=== PATIENT | female | born 1995 | race Caucasian/White ===

== ENCOUNTER 2017-01-30 15:55 | Emergency (ER) | payer OTHER ==
[2017-01-30 16:46] LABS: Comments Flag Yes; Hematocrit 35 % (35-47); Hemoglobin 11.2 g/dl (12.0-16.0); Mean Corpuscular HGB Conc 32 g/dl (31-36); Mean Corpuscular Hemoglobin 21 pg (27-31); Mean Corpuscular Volume 65 fL (80-97); Mean Platelet Volume 8 um3 (7.4-10.4); Red Blood Count 5.39 10^6/ul (4.0-5.4); Red Cell Distribution Width 17 % (10.5-15)
[2017-01-30 16:47] LABS: Add Diff/Slide Review? Slide Review Added
[2017-01-30 17:02] LABS: ALT 15 U/L (7-52); AST 19 U/L (13-39); Albumin 4.3 g/dL (3.2-5.2); Alkaline Phosphatase 38 U/L (34-104); Anion Gap 6 mmol/L (2-11); BUN/Creatinine Ratio 10.8 (8-20); Blood Urea Nitrogen 7 mg/dL (6-24); CO2 Carbon Dioxide 26 mmol/L (22-32); Calcium 9.5 mg/dL (8.6-10.3); Chloride 104 mmol/L (101-111); Creatine Kinase 50 U/L (10-223); EGFR Non-African American 115.1 (>60); Globulin 2.9 g/dL (2-4); Glucose 89 mg/dL (70-100); Magnesium 1.9 mg/dL (1.9-2.7); Potassium 3.4 mmol/L (3.5-5.0); Sodium 136 mmol/L (133-145); Total Protein 7.2 g/dL (6.4-8.9)
[2017-01-30 17:11] LABS: Add Path Review? YES; Microcytosis 2+
[2017-01-30] MEDS ORDERED: Potassium Chlor TAB* 20 MEQ TAB.ER PO ONE (17:42)
[2017-01-30 17:45] LABS: Urine Bacteria Absent (Absent); Urine Bilirubin Negative (Negative); Urine Glucose Negative (Negative); Urine Nitrite Negative (Negative)
--- NOTE | 2017-01-30 18:00 | RAD ---
INDICATION: Midsternal chest pain COMPARISON: Chest x-ray dated August 30, 2015 TECHNIQUE: PA and lateral views of the chest were obtained. FINDINGS: The heart and mediastinum are normal in size and contour. The lungs are grossly clear. There is no evidence of large pleural effusion. Visualized bones are normal for the patient's age. There is no radiographic evidence of free air beneath the diaphragm IMPRESSION: No radiographic evidence of acute cardiopulmonary disease.
[2017-01-30 18:04] LABS: TSH (Thyroid Stimulating Horm) 0.41 mcIU/mL (0.34-5.60)
--- NOTE | 2017-01-30 18:22 | ED ---
Marisabel Lomeli Abhishek, scribed for Vini Knight MD on 01/30/17 at 1633 . Abdominal Pain/Female - HPI Summary HPI Summary: This patient is a 21 year old F presenting to [facility] with a chief complaint of abd pain since 2 weeks ago. Patient states that pain radiated to the left side of chest and pain is worse since last night. The patient rates the pain 7/10 in severity. Symptoms alleviated by nothing. Patient reports gradual weight loss since a few months ago as well as memory loss, no sleep for a few weeks, decreased appetite since a few days ago, nausea and vomiting aggravated by eating food, fatigue, and GA. Patient denies vaginal discharge and bleeding. Pt does not drink any form of power drinks such as coffee Pt also states last menstrual period last week. - History of Current Complaint Chief Complaint: EDChestPainROMI Stated Complaint: CHEST PAIN Hx Obtained From: Patient Hx Last Menstrual Period: Last week Onset/Duration: Gradual Onset, Lasting Weeks - a few weeks ago, Still Present Timing: Constant Severity Initially: Moderate Severity Currently: Moderate Pain Intensity: 7 Pain Scale Used: 0-10 Numeric Radiates: Yes Radiates to: Chest - Left Aggravating Factor(s): Food Alleviating Factor(s): Nothing Associated Signs and Symptoms: Positive: Chest Pain, Decreased Appetite, Nausea - aggravated by food, Vomiting - aggravated by food, Other: - Headache. Negative: Vaginal Bleeding, Vaginal Discharge Allergies/Adverse Reactions: Allergies Allergy/AdvReac Type Severity Reaction Status Date / Time No Known Allergies Allergy Verified 01/30/17 16:02 PMH/Surg Hx/FS Hx/Imm Hx Endocrine/Hematology History: Denies: Hx Diabetes, Hx Thyroid Disease Cardiovascular History: Reports: Other Cardiovascular Problems/Disorders - HEART MURMUR Denies: Hx Hypertension, Hx Pacemaker/ICD Respiratory History: Denies: Hx Asthma, Hx Chronic Obstructive Pulmonary Disease (COPD) GI History: Denies: Hx Ulcer Sensory History: Denies: Hx Hearing Aid Psychiatric History: Denies: Hx Panic Disorder - Surgical History Surgery Procedure, Year, and Place: CYST REMOVED FROM [facility] Infectious Disease History: No Infectious Disease History: Denies: Hx Hepatitis, Hx Human Immunodeficiency Virus (HIV), History Other Infectious Disease, Traveled Outside the [place] in Last 30 Days - Family History Known Family History: Positive: None Family History: NON CONTRIBUTORY - Social History Alcohol Use: None Substance Use Type: Reports: None Smoking Status (MU): Never Smoked Tobacco Type: Cigarettes Review of Systems Positive: Fatigue Eyes: Negative ENT: Negative Positive: Chest Pain - Left Respiratory: Negative Positive: Abdominal Pain - upper and side regions, Vomiting - aggravated by food , Nausea - aggravated by food, Other - decreased appetite Positive: other - Negative vaginal bleeding. Negative: discharge Musculoskeletal: Negative Neurological: Other - memory loss Positive: Headache Psychological: Normal All Other Systems Reviewed And Are Negative: Yes Physical Exam - Summary Physical Exam Summary: VITAL SIGNS: Reviewed. GENERAL: Patient is a well-developed and nourished female who is lying comfortable in the stretcher. ~Patient is not in any acute respiratory distress. HEAD AND FACE: Normocephalic and atraumatic. EYES: PERRLA, EOMI x 2, No injected conjunctiva. EARS: Hearing grossly intact. Ear canals and tympanic membranes are WNL. MOUTH: Oropharynx within normal limits. NECK: Supple, trachea is midline, no adenopathy, no JVD. CHEST: Symmetric, no tenderness at palpation LUNGS: Clear to auscultation bilaterally. No wheezing or crackles. CVS: RRR, S1 and S2 present, no murmurs or gallops appreciated. ABDOMEN: Left lower quadrant tenderness EXTREMITIES: FROM in all major joints, no edema, no cyanosis or clubbing. NEURO: Alert and oriented x 3. No acute neurological deficits. Speech is normal. SKIN: Dry and warm Triage Information Reviewed: Yes Vital Signs On Initial Exam: Initial Vitals Temp Pulse Resp BP Pulse Ox 98.2 F 62 14 130/70 100 01/30/17 15:57 01/30/17 15:57 01/30/17 15:57 01/30/17 15:57 01/30/17 15:57 Vital Signs Reviewed: Yes Diagnostics - Vital Signs Vital Signs Temp Pulse Resp BP Pulse Ox 01/30/17 15:57 98.2 F 62 14 130/70 100 - Laboratory Lab Results: Lab Results 01/30/17 01/30/17 01/30/17 Range/Units 16:40 16:40 17:29 WBC 7.0 (3.5-10.8) 10^3/ul RBC 5.39 (4.0-5.4) 10^6/ul Hgb 11.2 L (12.0-16.0) g/dl Hct 35 (35-47) % MCV 65 L (80-97) fL MCH 21 L (27-31) pg MCHC 32 (31-36) g/dl RDW 17 H (10.5-15) % Plt Count 279 (150-450) 10^3/ul MPV 8 (7.4-10.4) um3 Neut % (Auto) 72.7 (38-83) % Lymph % (Auto) 19.7 L (25-47) % Mckean % (Auto) 5.3 (1-9) % Eos % (Auto) 1.3 (0-6) % Baso % (Auto) 1.0 (0-2) % Absolute Neuts (auto) 5.1 (1.5-7.7) 10^3/ul Absolute Lymphs (auto) 1.4 (1.0-4.8) 10^3/ul Absolute Monos (auto) 0.4 (0-0.8) 10^3/ul Absolute Eos (auto) 0.1 (0-0.6) 10^3/ul Absolute Basos (auto) 0.1 (0-0.2) 10^3/ul Absolute Nucleated RBC 0 10^3/ul Nucleated RBC % 0 Normal RBC Morphology Not Reportable Microcytosis 2+ Hem Pathologist Commnt Pending Sodium 136 (133-145) mmol/L Potassium 3.4 L (3.5-5.0) mmol/L Chloride 104 (101-111) mmol/L Carbon Dioxide 26 (22-32) mmol/L Anion Gap 6 (2-11) mmol/L BUN 7 (6-24) mg/dL Creatinine 0.65 (0.51-0.95) mg/dL Est GFR ( Amer) 148.0 (>60) Est GFR (Non-Af Amer) 115.1 (>60) BUN/Creatinine Ratio 10.8 (8-20) Glucose 89 (70-100) mg/dL Calcium 9.5 (8.6-10.3) mg/dL Magnesium 1.9 (1.9-2.7) mg/dL Total Bilirubin 0.40 (0.2-1.0) mg/dL AST 19 (13-39) U/L ALT 15 (7-52) U/L Alkaline Phosphatase 38 (34-104) U/L Total Creatine Kinase 50 (10-223) U/L Total Protein 7.2 (6.4-8.9) g/dL Albumin 4.3 (3.2-5.2) g/dL Globulin 2.9 (2-4) g/dL Albumin/Globulin Ratio 1.5 (1-3) TSH 0.41 (0.34-5.60) mcIU/mL Beta HCG, Quant < 0.60 mIU/mL Urine Color Yellow Urine Appearance Cloudy Urine pH 7.0 (5-9) Ur Specific [place] 1.015 (1.010-1.030) Urine Protein Negative (Negative) Urine Ketones Negative (Negative) Urine Blood 1+ H (Negative) Urine Nitrate Negative (Negative) Urine Bilirubin Negative (Negative) Urine Urobilinogen Negative (Negative) Ur Leukocyte Esterase 3+ H (Negative) Urine WBC (Auto) Trace(0-5/hpf) (Absent) Urine RBC (Auto) Trace(0-2/hpf) (Absent) Ur Squamous Epith Cells Present H (Absent) Amorphous Crystals Present H (Absent) Urine Bacteria Absent (Absent) Urine Glucose Negative (Negative) Result Diagrams: 01/30/17 16:40 01/30/17 16:40 Lab Statement: Any lab studies that have been ordered have been reviewed, and results considered in the medical decision making process. - Radiology Chest X-ray Radiology Interpretation Completed By: Radiologist - CXR reveals, per radiologist, No radiographic evidence of acute cardiopulmonary disease. ED physician has reviewed this radiology report and agrees. Abdominal Pain Fem Course/Dx - Course Course Of Treatment: This patient is a 21 year old F presenting to [facility] with a chief complaint of abd pain since 2 weeks ago. Patient states that pain radiated to the left side of chest and pain is worse since last night. The patient rates the pain 7/10 in severity. Symptoms alleviated by nothing. Patient reports gradual weight loss since a few months ago as well as memory loss, no sleep for a few weeks, decreased appetite since a few days ago, nausea and vomiting aggravated by eating food, fatigue, and GA. Patient denies vaginal discharge and bleeding. Blood tests are without any significant abnormalities except a potassium level of 3.43. Pt was given potassium chloride. The urinalysis is contaminated, and we will send urine for cultures. The patient is tolerating PO fluids without any nausea and vomiting. She will be D/C home with a dx of atypical chest pain and anxiety and insomnia with instructions to follow up with PCP as needed. - Diagnoses Provider Diagnoses: Anxiety, Insomnia, Atypical chest pain Discharge - Discharge Plan Condition: Stable Disposition: HOME Patient Education Materials: Chest Pain (ED), Insomnia (ED), Anxiety (ED) Referrals: [facility] [Outside] (Follow up with PCP as needed.) The documentation as recorded by the Marisabel egan Abhishek accurately reflects the service I personally performed and the decisions made by Eugene odom Walter, MD.
[2017-01-30 18:26] VITALS: BP 120/56
== END 2017-01-30 18:26 | disposition home or self-care (01) ==
LOC: ED 15:55
DX: R07.89 Other chest pain (principal); G47.00 Insomnia, unspecified; F41.9 Anxiety disorder, unspecified
CPT/HCPCS: 36415; 71020; 80053; 81003; 81015; 82550; 83735; 84443; 84702; 85025; 85060; 87086; 93005; 99283; A9270-GY

== ENCOUNTER 2017-03-28 16:55 | Emergency (ER) | payer OTHER ==
[2017-03-28 17:05] VITALS: BP 122/79
--- NOTE | 2017-03-28 17:38 | UC ---
Kesha Lomeli Emily, scribed for Colten Jamison MD on 03/28/17 at 1728 . Headache HPI - HPI Summary HPI Summary: This patient is a 21 year old F presenting to urgent care with a chief complaint of head pain that began 1 month ago. The patient rates the pain 7/10 in severity. Symptoms aggravated by resting position. Symptoms alleviated by nothing. Patient reports decreased appetite, nausea, dizziness, difficulty sleeping, weakness, difficulty remembering things, difficulty speaking, and blurred vision. Patient denies fever, chills, sore throat, and ear pain. - History Of Current Complaint Chief Complaint: UCHeadanichelle Stated Complaint: HEAD COMPLAINT AND MEMORY Time Seen by Provider: 03/28/17 17:15 Hx Obtained From: Patient Hx Last Menstrual Period: 2 wks ago Onset/Duration: Sudden Onset, Lasting Weeks, Still Present Onset Of Symptoms: Still Present Initially Headache Was: Moderate Currently Pain Is: Moderate Pain Intensity: 7 Pain Scale Used: 0-10 Numeric Timing: Constant Aggravating Factor(s): Other - Resting position Allevating Factor(s): Nothing Associated Signs And Symptoms: Positive: Other (Noted In Comments) - Positive decreased appetite, nausea, dizziness, difficulty sleeping, weakness, difficulty remembering things, difficulty speaking, and blurred vision. Negative fever, chills, sore throat, and ear pain. - Allergies/Home Medications Allergies/Adverse Reactions: Allergies Allergy/AdvReac Type Severity Reaction Status Date / Time No Known Allergies Allergy Verified 03/28/17 17:05 PMH/Surg Hx/FS Hx/Imm Hx Previously Healthy: No Cardiovascular History: Hypertension, Atrial Fibrillation, Other Other Cardiovascular History: Murmur Respiratory History: Other Other Respiratory History: Negative asthma - Surgical History Surgical History: Yes Surgery Procedure, Year, and Place: CYST REMOVED FROM [facility] - Family History Known Family History: Positive: None Family History: NON CONTRIBUTORY - Social History Occupation: Unemployed Lives: With Family Alcohol Use: Occasionally Substance Use Type: None Smoking Status (MU): Never Smoked Tobacco Type: Cigarettes - Immunization History Most Recent Influenza Vaccination: none Most Recent Pneumonia Vaccination: none Review of Systems Constitutional: Other - Negative fever and chills Eyes: Blurred Vision ENT: Other - Negative sore throat and ear ache Gastrointestinal: Nausea, Other - Positive decreased appetite Neurological: Headache, Weakness, Other - Positive difficulty sleeping, dizziness, difficulty remembering things, and difficulty speaking All Other Systems Reviewed And Are Negative: Yes Physical Exam Triage Information Reviewed: Yes Vital Signs: Initial Vital Signs Temp 97.7 F 03/28/17 17:01 Pulse 79 03/28/17 17:01 Resp 12 03/28/17 17:01 BP 122/79 03/28/17 17:01 Pulse Ox 100 03/28/17 17:01 Vital Signs Reviewed: Yes - Additional Comments General: well-appearing, mild pain distress Skin: warm, color reflects adequate perfusion, dry Head: normal Eyes: EOMI, CORINE, mild photophobia ENT: normal Neck: supple, nontender Respiratory: CTA, breath sounds present Cardiovascular: RRR Abdomen: soft, nontender Bowel: present Musculoskeletal: normal, strength/ROM intact Neurological: normal, sensory/motor intact, A&O x3 Psychological: affect/mood appropriate Headache Course/Dx - Course Course Of Treatment: HAS NOT FELT WELL FOR 1 MONTH. GA X 2 WEEKS. IT IS WORSE WITH LYING DOWN. FEELS LIKE HER MEMORY IS OFF. REPORTS HAND NUMBNESS UPON AWAKNING. DISCUSSED GOING TO THE ED FOR FURTHER EVALUATION; IMAGING/LABS AND, IF NEEDED, NEUROLOGY CONSULTATION. PATIENT AGREES, HER BROTHER WILL GIVE HER A RIDE THERE. I CONTACTED THE ED. - Differential Dx/Diagnosis Provider Diagnoses: HEADACHE WITH MEMORY LOSS Discharge - Discharge Plan Condition: Stable Disposition: HOME Patient Education Materials: General Headache (ED) Referrals: No Primary Care Phys,NOPCP [Primary Care Provider] - Additional Instructions: GO DIRECTLY TO THE EMERGENCY DEPARTMENT FOR FURTHER EVALUATION OF YOUR HEADACHE AND MEMORY ISSUES. The documentation as recorded by the Kesha egan Emily accurately reflects the service I personally performed and the decisions made by me, Colten Jamison MD.
== END 2017-03-28 17:30 | disposition home or self-care (01) ==
LOC: UCEAST 16:55
DX: R51 Headache (principal); R41.3 Other amnesia; R11.0 Nausea; R42 Dizziness and giddiness; R53.1 Weakness; H53.8 Other visual disturbances; R47.9 Unspecified speech disturbances; I10 Essential (primary) hypertension; I48.91 Unspecified atrial fibrillation; R01.1 Cardiac murmur, unspecified
CPT/HCPCS: 99212; G0463

== ENCOUNTER 2017-03-28 17:59 | Emergency (ER) | payer OTHER ==
[2017-03-28 18:16] VITALS: BP 126/81
== END 2017-03-28 18:26 | disposition left against medical advice (07) ==
LOC: ED 17:59
DX: R51 Headache (principal); Z53.21 Procedure and treatment not carried out due to patient leaving prior to being seen by health care provider

== ENCOUNTER 2017-06-23 09:08 | Emergency (ER) | payer OTHER ==
[2017-06-23 09:14] VITALS: BP 116/59
--- NOTE | 2017-06-23 09:41 | UC ---
Skin Complaint HPI - HPI Summary HPI Summary: 21 yo WF c/o reddish macular scaly itchy rash on B/L axilla, back and lower abd areas x 1-2 weeks. Denies having it had it in the past and is healthy and does not sweat excessively - History of Current Complaint Chief Complaint: UCSkin Time Seen by Provider: 06/23/17 09:25 Stated Complaint: RASH Hx Obtained From: Patient Hx Last Menstrual Period: 05/13/17 Onset/Duration: Lasting Days, Still Present Timing: Constant Onset Severity: Moderate Current Severity: Moderate Pain Intensity: 0 - Allergy/Home Medications Allergies/Adverse Reactions: Allergies Allergy/AdvReac Type Severity Reaction Status Date / Time No Known Allergies Allergy Verified 06/23/17 09:14 Review of Systems Constitutional: Negative Skin: Rash Eyes: Negative ENT: Negative Respiratory: Negative Cardiovascular: Negative Gastrointestinal: Negative Genitourinary: Negative Motor: Negative Neurovascular: Negative Musculoskeletal: Negative Neurological: Negative Psychological: Negative All Other Systems Reviewed And Are Negative: Yes PMH/Surg Hx/FS Hx/Imm Hx - Additional Past Medical History Additional PMH: none Previously Healthy: Yes - Surgical History Surgical History: Yes Surgery Procedure, Year, and Place: CYST REMOVED FROM [facility] - Family History Known Family History: Positive: None Family History: NON CONTRIBUTORY - Social History Alcohol Use: Occasionally Substance Use Type: None Smoking Status (MU): Never Smoked Tobacco Type: Cigarettes - Immunization History Most Recent Influenza Vaccination: none Most Recent Pneumonia Vaccination: none Physical Exam Triage Information Reviewed: Yes Appearance: Well-Appearing Vital Signs: Initial Vital Signs Temp 36.5 C 06/23/17 09:11 Pulse 74 06/23/17 09:11 Resp 16 06/23/17 09:11 BP 116/59 06/23/17 09:11 Pulse Ox 100 06/23/17 09:11 Eye Exam: Normal ENT Exam: Normal Dental Exam: Normal Neck exam: Normal Neck: Positive: 1 Respiratory Exam: Normal Cardiovascular Exam: Normal Abdominal Exam: Normal Musculoskeletal Exam: Normal Neurological Exam: Normal Psychological Exam: Normal Skin: Positive: significant lesion(s) - herald patch on left pelvis, and erythematous scaly pruritic 1x2 to 2x2 cm macules seeon in B/L lower abd, B/L axilla and upper back, Other Course/Dx - Diagnoses Provider Diagnoses: Pityriasis rubra Discharge - Sign-Out/Discharge Documenting (check all that apply): Discharge - Discharge Plan Condition: Stable Disposition: HOME Prescriptions: Clotrimazole/Betamethasone* [Lotrisone Cream*] 1 applic TOPICAL BID 10 Days #1 tube Patient Education Materials: Pityriasis rosea (ED) Referrals: No Primary Care Phys,NOPCP [Primary Care Provider] - Additional Instructions: The rash may take about 6-8 weeks to go away, Medication is for topical and symptomatic treatment only. Please consult with chemical compounder if symptoms not adequately treated. - Billing Disposition and Condition Condition: STABLE Disposition: HOME
== END 2017-06-23 09:39 | disposition home or self-care (01) ==
LOC: UCEAST 09:08
DX: L44.0 Pityriasis rubra pilaris (principal)
CPT/HCPCS: 99212; G0463

== ENCOUNTER 2017-12-06 20:51 | Emergency (ER) | payer OTHER ==
--- NOTE | 2017-12-06 21:22 | ED ---
Syncope/Near Syncope - HPI Summary HPI Summary: Patient is a 22 y/o F w/ c/o witness syncopal episode today. Patient's parents are present in the room. They report that they were having dinner with patient when she began to complain of chest pain and SOB. Patient then collapsed into mother's arms. Patient is reported to have been unresponsive for a few minutes. At this time, patient was also shaking and her eyes were twitching. Patient was not incontinent. In room, chest pain, SOB is denied. Patient reports Hx of similar episodes, with the last episode occurring a year ago. Parents note they have not witnessed previous episodes. Patient states that she was seen at [facility] for previous syncopal episodes. She states she was discharged and believes she was given follow up instructions, but she does not remember if she went to see the referred doctor. PMHx of heart murmur, unspecified arrhythmia, and anemia. FMHx of anemia. On triage, pain is denied and nothing is noted to aggravate/ alleviate Sx. Home medications and allergies are reviewed. Patient uses marijuana. - History Of Current Complaint Chief Complaint: EDSyncope Time Seen by Provider: 12/06/17 20:59 Hx Obtained From: Patient Onset/Duration: Resolved Timing: Hours - episode occurred when family was having dinner tonight Context: Witnessed Activity At Onset: At Rest - eating dinner Aggravating Factor(s): Nothing Alleviating Factor(s): Nothing Associated Signs And Symptoms: Chest Pain, Shortness Of Breath, Other - NEGATIVE : incontinent - Allergies/Home Medications Allergies/Adverse Reactions: Allergies Allergy/AdvReac Type Severity Reaction Status Date / Time No Known Allergies Allergy Verified 06/23/17 09:14 Home Medications: Home Medications NK [No Home Medications Reported] 12/06/17 [History Confirmed 12/06/17] PMH/Surg Hx/FS Hx/Imm Hx Endocrine/Hematology History: Denies: Hx Diabetes, Hx Thyroid Disease Cardiovascular History: Reports: Other Cardiovascular Problems/Disorders - HEART MURMUR Denies: Hx Hypertension, Hx Pacemaker/ICD Respiratory History: Denies: Hx Asthma, Hx Chronic Obstructive Pulmonary Disease (COPD) GI History: Denies: Hx Ulcer Psychiatric History: Denies: Hx Panic Disorder - Surgical History Surgery Procedure, Year, and Place: CYST REMOVED FROM [facility] Infectious Disease History: No Infectious Disease History: Denies: Hx Hepatitis, Hx Human Immunodeficiency Virus (HIV), History Other Infectious Disease, Traveled Outside the [place] in Last 30 Days - Family History Known Family History: Positive: Blood Disorder - mother has anemia - Social History Alcohol Use: Occasionally Substance Use Type: Reports: Marijuana Smoking Status (MU): Never Smoked Tobacco Type: Cigarettes Review of Systems Positive: Chest Pain - since resolved Positive: Shortness Of Breath - since resolved Positive: Other - NEGATIVE: incontinent Positive: Syncope - shaking, eyes twitching All Other Systems Reviewed And Are Negative: Yes Physical Exam - Summary Physical Exam Summary: VITAL SIGNS: Reviewed. GENERAL: Patient is a well-developed and nourished female who is lying comfortable in the stretcher. Patient is not in any acute respiratory distress. HEAD AND FACE: No signs of trauma. No ecchymosis, hematomas or skull depressions. No sinus tenderness. EYES: PERRLA, EOMI x 2, No injected conjunctiva, no nystagmus. EARS: Hearing grossly intact. Ear canals and tympanic membranes are within normal limits. MOUTH: Oropharynx within normal limits. NECK: Supple, trachea is midline, no adenopathy, no JVD, no carotid bruit, no c- spine tenderness, neck with full ROM. CHEST: Symmetric, no tenderness at palpation LUNGS: Clear to auscultation bilaterally. No wheezing or crackles. CVS: Regular rate and rhythm, S1 and S2 present, no murmurs or gallops appreciated. ABDOMEN: Soft, non-tender. No signs of distention. No rebound no guarding, and no masses palpated. Bowel sounds are normal. EXTREMITIES: FROM in all major joints, no edema, no cyanosis or clubbing. NEURO: Alert and oriented x 3. No acute neurological deficits. Speech is normal and follows commands. SKIN: Dry and warm Triage Information Reviewed: Yes Vital Signs On Initial Exam: Initial Vitals Temp Pulse Resp BP Pulse Ox 98.6 F 65 18 131/80 98 12/06/17 21:01 12/06/17 21:01 12/06/17 21:01 12/06/17 21:01 12/06/17 21:01 Vital Signs Reviewed: Yes Diagnostics - Vital Signs Vital Signs Temp Pulse Resp BP Pulse Ox 12/06/17 21:01 98.6 F 65 18 131/80 98 - Laboratory Result Diagrams: 12/06/17 21:37 12/06/17 21:38 Lab Statement: Any lab studies that have been ordered have been reviewed, and results considered in the medical decision making process. - EKG 2126 Cardiac Rate: NL - rate of 69 BPM EKG Rhythm: Sinus Rhythm EKG Interpretation: normal axis, normal interval, no ischemic changes Re-Evaluation - Re-Evaluation First Eval Re-Evaluation Time: 23:54 Comment: Discussed results of EKG and labs with patient. Discussed possible causes of syncope with patient and patient's parents. Patient will follow up with trim carpenter in 1-2 days. Patient understands and is agreeable with this plan. Course/Dx Assessment/Plan: Patient is a 22 y/o F w/ c/o witness syncopal episode today. Patient's parents are present in the room. They report that they were having dinner with patient when she began to complain of chest pain and SOB. Patient then collapsed into mother's arms. Patient is reported to have been unresponsive for a few minutes. At this time, patient was also shaking and her eyes were twitching. Patient was not incontinent. In room, chest pain, SOB is denied. Patient reports Hx of similar episodes, with the last episode occurring a year ago. Patient states that she was seen at [facility] for previous syncopal episodes. During ED course, patient was given fluids. Physical exam was normal. EKG showed NSR w/ 69 BPM, normal axis, normal interval, no ischemic changes. Blood and urine were obtained. Urine showed 2+ urine blood, urine protein 1+. Toxicology showed presumptive positive for cannabinoids. Labs showed INR was 1.03, Hbg 11.3, Hct 34. Discussed results of EKG and labs with patient and patient's parents. Discussed possible causes of syncope with patient and patient 's parents. Patient will follow up with trim carpenter in 1-2 days. Patient understands and is agreeable with this plan. - Diagnoses Provider Diagnoses: Syncope, Cannabis abuse Discharge - Sign-Out/Discharge Documenting (check all that apply): Patient Departure - DISCARG - Discharge Plan Condition: Stable Disposition: HOME Patient Education Materials: Syncope (ED), Cannabis Abuse (ED) Referrals: Almas Escobar MD [Medical Doctor] - 2 Days Additional Instructions: RETURN TO THE EMERGENCY DEPARTMENT FOR CHANGING OR WORSENING SYMPTOMS. FOLLOW UP WITH DECALER IN 1-2 DAYS. - Billing Disposition and Condition Condition: STABLE Disposition: Home - Attestation Statements Scribe Documentation Reviewed: Yes
[2017-12-06] MEDS ORDERED: NS 0.9% 1000 ML* 1,000 ML IV ONE (21:25)
[2017-12-06 21:52] LABS: ABS Basophils 0 10^3/ul (0-0.2); ABS Eosinophils 0.1 10^3/ul (0-0.6); ABS Lymphocytes 1.7 10^3/ul (1.0-4.8); ABS Monocytes 0.6 10^3/ul (0-0.8); ABS Neutrophils 4.9 10^3/ul (1.5-7.7); ABS Nucleated RBC 0 10^3/ul; Hematocrit 34 % (35-47); Hemoglobin 11.3 g/dl (12.0-16.0); Lymphocyte % 23.5 % (25-47); Mean Corpuscular HGB Conc 34 g/dl (31-36); Mean Corpuscular Hemoglobin 23 pg (27-31); Mean Corpuscular Volume 68 fL (80-97); Mean Platelet Volume 7.8 um3 (7.4-10.4); Nucleated Red Blood Cells % 0.3; Platelet Count 235 10^3/ul (150-450); Red Blood Count 4.95 10^6/ul (4.00-5.40); Red Cell Distribution Width 17 % (10.5-15); White Blood Count 7.3 10^3/ul (3.5-10.8)
[2017-12-06 21:56] LABS: INR 1.03 (0.77-1.02)
[2017-12-06 22:05] LABS: EGFR Non-African American 99.7 (>60)
[2017-12-06 23:26] LABS: Urine Appearance Clear; Urine Color Yellow; Urine Ketones NEG (Negative); Urine Specific Gravity 1.015 (1.010-1.030); Urine Urobilinogen NEG (Negative)
[2017-12-06 23:27] LABS: Urine Blood 2+ (Negative); Urine Protein 1+(30 mg/dL) (Negative)
[2017-12-07 00:08] VITALS: BP 118/62
== END 2017-12-07 00:07 | disposition home or self-care (01) ==
LOC: ED 20:51
DX: R07.9 Chest pain, unspecified (principal); R06.02 Shortness of breath; R55 Syncope and collapse; F12.10 Cannabis abuse, uncomplicated
CPT/HCPCS: 36415; 80053; 80307; 81003; 81015; 83735; 84443; 84484; 84702; 85025; 85610; 85730; 96360; 99283

== ENCOUNTER 2018-03-13 09:41 | Emergency (ER) | payer OTHER ==
[2018-03-13 09:47] VITALS: BP 115/72
--- NOTE | 2018-03-13 10:17 | UC ---
Dental HPI - HPI Summary HPI Summary: PATIENT WITH DIFFUSELY POOR DENTITION ARRIVES WITH 4 DAYS OF WORSENING LEFT UPPER DENTAL PAIN. NO SWELLING OR DISCHARGE IN THE MOUTH. NO FEVER. HAS TRIED TO CALL [facility] WITHOUT MUCH SUCCESS. OTC MEDS NOT HELPING WITH DISCOMFORT. - History of Current Complaint Chief Complaint: UCDentalProblem Stated Complaint: DENTAL,HEADACHE Time Seen by Provider: 03/13/18 09:53 Hx Obtained From: Patient, Family/Adaptive Physical Education Specialist - MOM Hx Last Menstrual Period: 03/07/18 Onset/Duration: Gradual Onset, Lasting Days, Still Present Severity: Moderate Pain Intensity: 7 Pain Scale Used: 0-10 Numeric Aggravating Factor(s): Chewing Alleviating Factor(s): Nothing - Allergies/Home Medications Allergies/Adverse Reactions: Allergies Allergy/AdvReac Type Severity Reaction Status Date / Time No Known Allergies Allergy Verified 03/13/18 09:47 PMH/Surg Hx/FS Hx/Imm Hx Previously Healthy: Yes - Surgical History Surgical History: Yes Surgery Procedure, Year, and Place: CYST REMOVED FROM [facility] - Family History Known Family History: Positive: Blood Disorder - mother has anemia - Social History Alcohol Use: Occasionally Substance Use Type: None Smoking Status (MU): Never Smoked Tobacco Type: Cigarettes - Immunization History Most Recent Influenza Vaccination: none Most Recent Pneumonia Vaccination: none Review of Systems All Other Systems Reviewed And Are Negative: Yes Constitutional: Positive: Negative ENT: Positive: Dental Pain Respiratory: Positive: Negative Cardiovascular: Positive: Negative Gastrointestinal: Positive: Negative Neurological: Positive: Headache Physical Exam Triage Information Reviewed: Yes Appearance: Well-Appearing, Well-Nourished, Pain Distress - MILD Vital Signs: Initial Vital Signs Temp 97.4 F 03/13/18 09:44 Pulse 99 03/13/18 09:44 Resp 17 03/13/18 09:44 BP 115/72 03/13/18 09:44 Pulse Ox 100 03/13/18 09:44 Vital Signs Reviewed: Yes Eyes: Positive: Conjunctiva Clear ENT: Positive: Hearing grossly normal, Pharynx normal Dental: Positive: Gross Decay/Caries @, Dental Fracture @ - #12 Neck: Positive: Supple, Enlarged Nodes @ - SHOTTY SPFL CERVICAL LAD Respiratory: Positive: No respiratory distress, No accessory muscle use Cardiovascular: Positive: Pulses Normal Abdomen Description: Positive: Soft Musculoskeletal: Positive: No Edema Neurological: Positive: Alert Psychological: Positive: Age Appropriate Behavior Skin: Negative: Rashes Dental Complaint Course/Dx - Course Course Of Treatment: ANTIBIOTICS, PAIN MEDICINE, ANTISEPTIC MOUTH RINSE. LIST OF DENTISTS PROVIDED. PATIENT TO CALL FOR FOLLOW-UP ZACKERY. NO CLEAR ABSCESS SEEN TODAY BUT PATIENT WITH POOR DENTITION AND FRACTURED TEETH SO WILL COVER FOR INFECTIOUS PROCESS. - Differential Dx/Diagnosis Provider Diagnosis: Toothache, Fractured tooth Discharge - Sign-Out/Discharge Documenting (check all that apply): Patient Departure All imaging exams completed and their final reports reviewed: No Studies - Discharge Plan Condition: Stable Disposition: HOME Prescriptions: Amoxicillin/Clavulanate TAB* [Augmentin TAB 875*] 875 mg PO BID #20 tab Chlorhexidine MW 0.12% 473ML* [Peridex Mouth Wash 0.12%*] 15 ml SWISH SPIT BID # 1 bottle HYDROcodone/ACETAMIN 5-325 MG* [[place] 5-325 TAB*] 1 tab PO Q6H PRN #15 tab MDD 4 PRN Reason: Pain Patient Education Materials: Toothache (ED) Referrals: No Primary Care Phys,NOPCP [Primary Care Provider] - Additional Instructions: TAKE THE ANTIBIOTICS FOR THE FULL COURSE. RINSE YOUR MOUTH WITH WATER AFTER EATING OR DRINKING ANYTHING. ANTISEPTIC MOUTH RINSE TWICE DAILY. OTC MEDS NEEDED FOR DISCOMFORT. FOLLOW-UP WITH A DENTIST Z[facility]. IBUPROFEN MAX DOSE: 600MG (3 TABS) EVERY 6 HRS OR 800MG (4 TABS) EVERY 8 HRS OR NAPROXEN MAX DOSE: 440MG (2 TABS) EVERY 12 HRS TYLENOL MAX DOSE: 1000MG (2 EXTRA STRENGTH TABS) EVERY 8 HRS OR 650MG (2 REGULAR TABS) EVERY 6 HRS DENTISTS Alfredo [facility] DDS Dentist Office [address], [place] [address] Domingo Bearden, [address], [place] [address] Jamie Mendieta D.D.S. [address], [place], [place] [id number] Opens at 8am - Billing Disposition and Condition Condition: STABLE Disposition: Home
== END 2018-03-13 10:20 | disposition home or self-care (01) ==
LOC: UCEAST 09:41
DX: S02.5XXA Fracture of tooth (traumatic), initial encounter for closed fracture (principal); K08.89 Other specified disorders of teeth and supporting structures; X58.XXXA Exposure to other specified factors, initial encounter; Y92.9 Unspecified place or not applicable
CPT/HCPCS: 99212; G0463

== ENCOUNTER 2018-09-25 12:55 | Emergency (ER) | payer OTHER ==
[2018-09-25 13:17] VITALS: BP 106/98
[2018-09-25] MEDS ORDERED: Fluorescein Sodium TOPICAL* 1 MG TEST STRIP OPHTHALMIC ONE (13:19)
[2018-09-25] MEDS ORDERED: Tetracaine 0.5% OPTH.SOL 4 ML* 1 DROP BTL LEFT EYE ONE (13:19)
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
== END 2018-09-25 14:10 | disposition home or self-care (01) ==
LOC: UCEAST 12:55
DX: S93.602A Unspecified sprain of left foot, initial encounter (principal); S00.212A Abrasion of left eyelid and periocular area, initial encounter; Y04.2XXA Assault by strike against or bumped into by another person, initial encounter; Y93.F9 Activity, other caregiving; Y92.10 Unspecified residential institution as the place of occurrence of the external cause; Y99.0 Civilian activity done for income or pay
CPT/HCPCS: 99211; A9270-GY; G0463

== ENCOUNTER 2019-03-09 15:31 | Emergency (ER) | payer MEDICAID ==
--- OUTSIDE RECORDS SUMMARY | 2019-03-09 15:46 | XMS REPORT | Continuity of Care Document ---
:1995 Author Organization [facility] Address [address] [place] [address] Phone Care Team Providers Name Role Phone Keyanna JAMES, Yesenia Unavailable Unavailable Allergies, Adverse Reactions, Alerts Substance Reaction Status ibuprofen Active Medications Medication Instructions Dosage Effective Dates (start Status Comments - stop) Aubra 0.1 mg-20 mcg 1 tab po daily - Active tablet Problems Condition Effective Dates (start - Clinical Status Comments stop) Human immunodeficiency virus [HIV] - counseling Encounter for oth general cnsl and - advice on contraception Low grade intrepith lesion cyto smr crvx (LGSIL) Encntr screen for infections w sexl mode of transmiss Encounter for initial prescription of contraceptive pills Pelvic and perineal pain Human immunodeficiency virus [HIV] - counseling Encounter for screening for human - immunodeficiency virus Dermatitis, unspecified Encntr screen for infections w sexl mode of transmiss Encounter for test, result negative Human immunodeficiency virus [HIV] - counseling Encounter for screening for human - immunodeficiency virus Encounter for test, result negative Body mass index (BMI) 21.0-21.9, adult Encounter for oth screening for malignant neoplasm of breast Encntr for oyster opener exam (general) (routine) w/o abn findings Unspecified lump in the right breast, upper inner quadrant Candidiasis of vulva and vagina Human immunodeficiency virus [HIV] - counseling Encounter for screening for human - immunodeficiency virus Encntr screen for dis of the bld/bld-form org/immun mechnsm Encounter for oth general cnsl and advice on contraception Encntr screen for infections w sexl mode of transmiss Human immunodeficiency virus [HIV] - counseling Encounter for screening for human - immunodeficiency virus Encounter for initial prescription of contraceptive pills Acute vaginitis Encntr screen for infections w sexl mode of transmiss Encntr screen for dis of the bld/bld-form org/immun mechnsm Human immunodeficiency virus [HIV] - counseling Encounter for oth general cnsl and - advice on contraception Frequency of micturition Acute vaginitis Encntr screen for infections w sexl mode of transmiss Encounter for test, result negative Encntr screen for infections w sexl mode of transmiss Acute vaginitis Encounter for initial prescription of contraceptive pills Encntr screen for dis of the bld/bld-form org/immun mechnsm Chlamydial infection, unspecified Chlamydial infection, unspecified Encntr screen for infections w sexl mode of transmiss Candidiasis of vulva and vagina Encounter for oth general cnsl and advice on contraception Procedures Procedure Date No information Results Test Name Date and Time Measure Units Reference Range Abnormal Flag Status Comments No information Advance Directives Directive Yes / No Effective Date File Name No information Encounters Encounter Practice Location Reason(s) Diagnoses Date Provider Providers Description For Visit Copied on Encounter [facility] [place] [address] Yes[place]. [address], [place], [place], [facility] [address]. [address] tel:[phone] [facility], [address] [place], [id number], tel:[phone] [facility] Jan- [facility] Referring Parenthood [place] immunodeficienc 5-201 Yes[place]. [address] Provider: Lizbeth y virus [HIV] [address], [place] [facility] [place], [place], [address] [facility] [place] [address]. [address] general cnsl tel:[phone] St, [place], [place], [place], [place] [address] [place], [address]. [place], contraceptionLo tel:[phone], w grade [id number] [place] intrepith tel:[phone] lesion cyto smr [id number] crvx (LGSIL)Encntr screen for infections w sexl mode of transmissEncoun ter for initial prescription of contraceptive pillsPelvic and perineal pain [facility] Referring Parenthood [place] immunodeficienc 2-201 Yes[place]. [address] Provider: Lizbeth y virus [HIV] [address], [place] counseling[place]ou [place], [place], [address] [place] [address]. , [address] screening for tel:[phone], [place], [place], [place] [address] [place], [place] immunodef[place]ien[place] [address]. [id number], [place] tel:[phone] [place] virusDermatitis [id number] tel:+ , [phone] unspecifiedEncn tr screen for infections w sexl mode of transmiss [facility] Encounter for Yamil Olivia. Referring Parenthood [place] test, [address] Provider: Lizbeth result negative [address], [place], [place], [address], [place], [address] [place], [address] [place]. [address], [place], [place], [place], [place], [address].Consu [id number], lting [place] Provider: tel:[phone] [place] [phone] [facility] Viri Referring Parenthood [place] immunodeficienc 4-201 Mariaelena. [address] Provider: Lizbeth y virus [HIV] [address], [place] counseling[place]ou [place], Viri J, [address] [place], [address] [place] [address], [place]. [address] screening for tel:[phone] St, [place], [place], [place], [place] [address] [place], [address]. [place], immunodeficienc tel:[phone], [place] 276394 [place] virusEncounter tel:[phone] for [phone] test, result negativeBody mass index (BMI) 21.0-21.9, adultEncounter for oth screening for malignant neoplasm of breastEncntr for oyster opener exam (general) (routine) w/o abn findingsUnspeci fied lump in the right breast, upper inner quadrantCandidi asis of vulva and vagina [facility] Yamil Olivia. Referring Parenthood [place] immunodeficienc [address] Provider: Lizbeth y virus [HIV] [address], [place], [address], [place], [address] [place], [address] nter for [place]. [address] screening for [address], [place], [place], [place], [place], [address]. [place], immunodeficienc [id number], y virusEncntr [place] screen for dis tel:[phone] of the [phone] bld/bld-form org/immun mechnsmEncounte r for oth general cnsl and advice on contraceptionEn cntr screen for infections w sexl mode of transmiss [facility] Yamil Olivia. Referring Parenthood [place] immunodeficienc [address] Provider: Lizbeth y virus [HIV] [address] St, [place], [place], [address], [place], [address] [place], [address] nter for [place]. [address] screening for [address], [place], [place], [place], [place], [address]. [place], immunodeficienc [id number], [place] virusEncounter tel:[phone] for initial [phone] prescription of contraceptive pillsAcute vaginitisEncntr screen for infections w sexl mode of transmissEncntr screen for dis of the bld/bld-form org/immun mechnsm [facility] [place] immunodeficienc 3 [place]. [address] [facility] y virus [HIV] [address], [place], [place], [place], 620 [place] [address]. [address] general cnsl tel:[phone] St, [place], [place] [address] [place], contraceptionFr [id number], equency of [place] micturitionAcut tel:[phone] vaginitisEncntr screen for infections w sexl mode of transmiss [facility] Encounter for Apr-0 [facility] [place] test, Aileen. [address] result 7 [address] [place] negativeEncntr , [place], [facility], [address] [place], [address], [address] infections w [place]. St, [place], sexl mode of tel:[phone] [place], transmissAcute [id number], vaginitisEncoun [place] ter for initial tel:[phone] prescription of [phone] contraceptive pillsEncntr screen for dis of the bld/bld-form org/immun mechnsm [facility] Chlamydial Dec-0 [employer] [facility] [place] infection, [facility] Provider: [facility] unspecified 6 [place]. [address] [place] [address], [facility]. [facility], [address] [place], [place], [address] [address]. [facility], tel:[phone] [place], [id number], [place] tel:[phone] [facility] Chlamydial Dec-0 [facility] [place] infection, . [address] unspecified [address], [place], [place], [facility], [address] [address]. [address] tel:[phone] , [place], [address] [place], [id number], [place] tel:[phone] [facility] Encntr screen Dec-0 [facility] [place] for infections [facility] [address] w sexl mode of 6 [place]. [address] [place] transmissCandid [address] , [facility], 620 iasis of vulva [place], [place], [address] and [address]. [facility], vaginaEncounter tel:[phone] [place], for oth general [phone], cnsl and advice [place] on tel:[phone] contraception [phone] Family History Family Member Diagnosis Age At Onset Mother Venous thromboembolism 1st degree relative No hx of coronary heart disease (female <65, male <55) 1st degree relative No hx of venous thromboembolism 1st degree relative No hx of cancer of breast, colon, endometrium or ovary Immunizations Vaccine Date Status Comments No information Payers Payer name Insurance type Covered alliance party ID Authorization(s) FPBP PRESUMPTIVE ELIGIBILITY [id number] Social History Type Description Quantity Date Captured Comments Alcohol Use Details Unknown Caffeine Use Details Unknown Tobacco Use Status Unknown Smoking Status Never smoker Sex Female Vital Signs Date / Height Weight BMI Pulse Blood Temperature Respiratory Body Head BMI Pulse Inhaled Time: Rate Pressure Rate Surface Circumference percentile Ox Ox Area No information Chief Complaint And Reason For Visit No information Reason For Referral Reason For Referral No information Plan Of Treatment Date Type Action Status No information History Of Present Illness Encounter Date Complaint History Of Present Illness No information Functional Status Date Functional Assessment No information Medications Administered Medication Instructions Dosage Effective Dates (start - stop) Status Comments No information Instructions Date Instruction Additional Information No information Assessments Type Assessment Date No information Goals Health Concern Goal Type Priority Status Date No information Medical Equipment Description Device [place] Device Identifier Effective Dates (start - stop ) Status No information Mental Status Date Cognitive Assessment No information Health Concerns Observation Date No information Concern Status Date No information
--- OUTSIDE RECORDS SUMMARY | 2019-03-09 15:46 | XMS REPORT | Continuity of Care Document ---
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 Bimanual Pelvic Method Initiation OTHER Medical Services Contraceptive Hospital Chief Financial Officer.Svc. Other Hospital Chief Financial Officer.Svc. STI Aubra EQ Contraceptive pills for bc Results Test Name Date and Time Measure Units Reference Range Abnormal Flag Status Comments No information Advance Directives Directive Yes / No Effective Date File Name No information Encounters Encounter Practice Location Reason(s) Diagnoses Date Provider Providers Description For Visit Copied on Encounter OFFICE/OUTPA [facility] Repeat Pap Human Nov- Keyanna Referring TIENT VISIT, [facility] [place] (chief immunodeficienc 5-201 [place]. [address] Provider: EST Southern complaint) y virus [HIV] [address], Rayna [place] counselingEncou [place], [place], [address], 620 [place] [address]. W [place] W [place] general cnsl tel:[phone] St, [place], [place], [place], [place] [address] [place], [address]. [place], contraception[place] tel:[phone], w grade [id number] [place] intrepith tel:[phone] lesion cyto smr [id number] crvx (LGSIL)Encntr screen for infections w sexl mode of transmissEncoun ter for initial prescription of contraceptive pillsPelvic and perineal pain [facility] Human Raphaelidis Referring [facility] [place] immunodeficienc 2- Yesenia. [address] Provider: Southern y virus [HIV] [address], [place]enia Finger counselingEncou [place], [place], Raphael[place], 620 [place]ter for [address]. , [address] [place] screening for tel:[phone] [address], St, [place] [address] [place] [address]. [id number], y tel:[phone] [place] virusDermatitis [id number] tel:[phone] , [phone] unspecifiedEncn tr screen for infections w sexl mode of transmiss [facility] Encounter for Yamil Olivia. Referring [facility] [place] test, [address] Provider: Southern result negative [address], [place], [place], [address], [place], [address] [place], 620 [place]. [address], [place], St, [place], [address].Consu [id number], lting [place] Provider: tel:[phone] [place] [address] [facility] Human Viri Referring [facility] [place] immunodeficienc 4-201 Mariaelena. 620 Provider: Southern y virus [HIV] [address], Mariaelena F[place] counselingEncou [place], Viri J, [address] [place], 620 [place] [address], [place]. W Cherokee W Cherokee screening for tel:[phone] St, [place], St, [place], [place] [address] [place], [address]. [place], immunodeficienc tel:[phone], y 429100 [place] virusEncounter tel:[phone] for [phone] test, result negativeBody mass index (BMI) 21.0-21.9, adultEncounter for oth screening for malignant neoplasm of breastEncntr for policy and planning manager exam (general) (routine) w/o abn findingsUnspeci fied lump in the right breast, upper inner quadrantCandidi asis of vulva and vagina [facility] Human Yamil Olivia. Referring [facility] [place] immunodeficienc [address] Provider: Southern y virus [HIV] 8 St, [place], [place], [address], [place], [address] [place], 620 nter for [place]. W Cherokee W Cherokee screening for St, [place], St, [place], [place], [address]. [place] immunodef[place] [id number], y virusEncntr [place] screen for dis tel:[phone] of the [phone] bld/bld-form org/immun mechnsmEncounte r for oth general cnsl and advice on contraceptionEn cntr screen for infections w sexl mode of transmiss [facility] Human Yamil Olivia. Referring [facility] [place] immunodeficienc [address] Provider: Southern y virus [HIV] 8 St, [place], [place], [address], [place], [address] [place], 620 nter for [place]. W Cherokee W Cherokee screening for St, [place], St, [place], [place], [address]. [place] immunodef[place] [id number], y [place] virusEncounter tel:[phone] for initial [phone] prescription of contraceptive pillsAcute vaginitisEncntr screen for infections w sexl mode of transmissEncntr screen for dis of the bld/bld-form org/immun mechnsm [facility] Human Raphaelidis [facility] [place] immunodeficienc Yesenia. [address] W Southern y virus [HIV] [address], [place] counselingEncou [place], [place], [place], 620 nter [place] oth [address]. W [place] general cnsl tel:[phone] St, [place], [place] [address] [place], contraceptionFr [id number], equency of [place] micturitionAcut tel:[phone] vaginitisEncntr screen for infections w sexl mode of transmiss [facility] Encounter for Apr-0 [facility] [place] test, Aileen. [facility] result 7 [address] Finger negativeEncntr , [place], [facility], [address] [place], [address], W [place] infections w [place]. , [place], sexl mode of tel:[phone] [place], transmissAcute [id number], vaginitisEncoun [place] ter for initial tel:[phone] prescription of [phone] contraceptive pillsEncntr screen for dis of the bld/bld-form org/immun mechnsm [facility] Chlamydial Dec-0 [employer] [facility] [place] infection, [facility] Provider: [facility] unspecified 6 [place]. 620 NURSE [place] [address], [facility]. [facility], [address] [place] [address], [place], [place] [address]. [facility], tel:[phone] [place], [id number], [place] tel:[phone] [facility] Chlamydial Dec-0 [facility] [place] infection, . [address] [place] unspecified [address], [place], [place], [facility], 620 [address]. [address] [place] tel:[phone] [facility], [address] [place], [id number], [place] tel:[phone] [facility] Encntr screen Dec-0 [facility] [place] for infections [facility] w sexl mode of 6 [place]. [address], [facility], 620 iasis of vulva [place], [place], [place] and [address]. [facility], vaginaEncounter tel:[phone] [place], for oth general [address] [id number], cnsl and advice [place] on tel:[phone] contraception [phone] Family History Family Member Diagnosis Age At Onset Mother Venous thromboembolism 1st degree relative No hx of coronary heart disease (female <65, male <55) 1st degree relative No hx of venous thromboembolism 1st degree relative No hx of cancer of breast, colon, endometrium or ovary Immunizations Vaccine Date Status Comments No information Payers Payer name Insurance type Covered democrat ID Authorization(s) FPBP PRESUMPTIVE ELIGIBILITY [id number] Social History Type Description Quantity Date Captured Comments Alcohol Use Details Unknown Caffeine Use Details Unknown Tobacco Use Status Current non-smoker Smoking Status Never smoker Non-Smoking Tobacco : No Details Available : No Details Available 2018 Use Details Sex Female Vital Signs Date / Height Weight BMI Pulse Blood Temperature Respiratory Body Head BMI Pulse Inhaled Time: Rate Pressure Rate Surface Circumference percentile Ox Ox Area 66.00 128.00 20.6 in lbs 6 mm[Hg] 3:18 kg/m PM eter (2) Chief Complaint And Reason For Visit Most recent encounter only, dated '02/05/2019 15:00'. Repeat Pap (chief complaint) Reason For Referral Reason For Referral No information Plan Of Treatment Date Type Action Status No information History Of Present Illness Encounter Date Complaint History Of Present Illness No information Functional Status Date Functional Assessment No information Medications Administered Medication Instructions Dosage Effective Dates (start - stop) Status Comments No information Instructions Date Instruction Additional Information No information Assessments Type Assessment Date assessment Human immunodeficiency virus [HIV] counseling assessment Encounter for oth general cnsl and advice on contraception 2018 assessment Low grade intrepith lesion cyto smr crvx (LGSIL) assessment Encntr screen for infections w sexl mode of transmiss assessment Encounter for initial prescription of contraceptive pills 2018 assessment Pelvic and perineal pain Goals Health Concern Goal Type Priority Status Date No information Medical Equipment Description Device [place] Device Identifier Effective Dates (start - stop ) Status No information Mental Status Date Cognitive Assessment No information Health Concerns Observation Date No information Concern Status Date No information
--- OUTSIDE RECORDS SUMMARY | 2019-03-09 15:46 | XMS REPORT | Continuity of Care Document ---
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 [address] [place] [address], [place], [place], [facility], [facility] [address]. [address] [place] tel:[phone] [facility], [place], [address] [place], [id number], tel:[phone] [facility] Human Jan- Raphaelidis Referring [facility] [place] immunodeficienc 5-201 Yes[place]. 620 W Provider: Lizbeth y virus [HIV] [address], Rayna [facility] Center[facility] [place], [place], 620 [facility], [facility] [place] [address]. [place] general cnsl tel:[phone] St, [place], St, [place], [place] [address] [place], [address]. [place], contraception[place] tel:[phone], w grade [id number] [place] intrepith tel:[phone] lesion cyto smr [id number] crvx (LGSIL)Encntr screen for infections w sexl mode of transmissEncoun ter for initial prescription of contraceptive pillsPelvic and perineal pain [facility] Human Raphaelidis Referring [facility] [place] immunodeficienc 2-201 [place]. 620 W Provider: Lizbeth y virus [HIV] [address], Yesenia Finger counselingEncou [place], [place], 620 [place] for [address]. , [address] [place] screening for tel:[phone], St, [place], [place] [address] [place], [place], [place] [address]. [id number], y tel:[phone] [place] virusDermatitis [id number] tel:+ , [phone] unspecifiedEncn tr screen for infections w sexl mode of transmiss [facility] Encounter for Yamil Olivia. Referring [facility] [place] test, [address] [place] Provider: Lizbeth result negative [address], [place], [place], [address], [place], [address] [place], 620 [place]. W [address], [place], St, [place], [address].Consu [id number], lting [place] Provider: tel:[phone] [place] [phone] [facility] Human Viri Referring [facility] [place] immunodeficienc 4-201 Mariaelena. 620 Provider: Lizbeth y virus [HIV] [address], Mariaelena Finger counselingEncou [place], Viri J, [address] [place], 620 [place] for [address], [place]. W [place] W [place] screening for tel:[phone] St, [place], St, [place], [place] [address] [place], [address]. [place], immunodeficienc tel:[phone], y 688484 [place] virusEncounter tel:[phone] for [phone] test, result negativeBody mass index (BMI) 21.0-21.9, adultEncounter for oth screening for malignant neoplasm of breastEncntr for homicide squad sergeant exam (general) (routine) w/o abn findingsUnspeci fied lump in the right breast, upper inner quadrantCandidi asis of vulva and vagina [facility] Human Yamil Olivia. Referring [facility] [place] immunodeficienc [address] [place] Provider: Lizbeth y virus [HIV] 8 St, [place], [place], [address], [place], [address] [place], 620 nter for [place]. W [place] W [place] screening for St, [place], St, [place], [place], [address]. [place], immunodeficienc [id number], y virusEncntr [place] screen for dis tel:[phone] of the [phone] bld/bld-form org/immun mechnsmEncounte r for oth general cnsl and advice on contraceptionEn cntr screen for infections w sexl mode of transmiss [facility] Human Yamil Olivia. Referring [facility] [place] immunodeficienc [address] [place] Provider: Lizbeth y virus [HIV] 8 St, [place], [place], [address], [place], [address] [place], 620 nter for [place]. W [place] W [place] screening for St, [place], St, [place], [place], [address]. [place], immunodef[place]ienc [id number], y [place] virusEncounter tel:[phone] for initial [phone] prescription of contraceptive pillsAcute vaginitisEncntr screen for infections w sexl mode of transmissEncntr screen for dis of the bld/bld-form org/immun mechnsm [facility] Human Raphaelidis [facility] [place] immunodeficienc 3 Yesenia. [address] W [facility] y virus [HIV] [address], [place] counselingEncou [place], [place], [place], 620 [place] [address]. W [place] general cnsl tel:[phone] St, [place], [place] [address] [place], contraceptionFr [id number], equency of [place] micturitionAcut tel:[phone] e [phone] vaginitisEncntr screen for infections w sexl mode of transmiss [facility] Encounter for Apr-0 [facility] [place] test, Aileen. Southern result 7 [address] [place] negativeEncntr , [place], [facility], [address] [place], [address], W [place] infections w [place]. St, [place], sexl mode of tel:[phone] [place], transmissAcute [id number], vaginitisEncoun [place] ter for initial tel:[phone] prescription of [phone] contraceptive pillsEncntr screen for dis of the bld/bld-form org/immun mechnsm [facility] Chlamydial Dec-0 [employer] [facility] [place] infection, [facility] Provider: [facility] unspecified 6 [place]. 620 NURSE [place] [address], [facility]. [facility], 620 [place], [place], [place] [address]. [facility], [place], tel:[phone] [place], [id number], [place] tel:[phone] [facility] Chlamydial Dec-0 [facility] [place] infection, . [address] [place] unspecified [address], [place], [facility], 620 [address]. [address] [place] tel:[phone] , [place], [address] [place], [id number], [place] tel:[phone] [facility] Encntr screen Dec-0 [facility] [place] for infections [facility] [place] w sexl mode of 6 [address]. 620 [place] transmissCandid [address] [place] , [facility], 620 iasis of vulva [place], [place] and [address]. [facility], [place], vaginaEncounter tel:[phone] [place], for oth general [address] [id number], cnsl and advice [place] on tel:[phone] contraception [phone] Family History Family Member Diagnosis Age At Onset Mother Venous thromboembolism 1st degree relative No hx of coronary heart disease (female <65, male <55) 1st degree relative No hx of venous thromboembolism 1st degree relative No hx of cancer of breast, colon, endometrium or ovary Immunizations Vaccine Date Status Comments No information Payers Payer name Insurance type Covered libertarian ID Authorization(s) FPBP PRESUMPTIVE ELIGIBILITY [id number] Social History Type Description Quantity Date Captured [...] Date No information Medical Equipment Description Device [place] Device Identifier Effective Dates (start - stop ) Status No information Mental Status Date Cognitive Assessment No information Health Concerns Observation Date No information Concern Status Date No information
--- OUTSIDE RECORDS SUMMARY | 2019-03-09 15:46 | XMS REPORT | Continuity of Care Document ---
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 [address], [place], [place], [facility], 620 [address], [place]. W [place] tel:[phone] St, [place], [address] [place], [id number], [place] tel:[phone] [facility] Human [facility] Referring [facility] [place] immunodeficienc 2-201 Yes[place]. 620 W Provider: Lizbeth y virus [HIV] [address], Yesenia F[place] counselingEncou [place], [place], Raphaelidis [facility], [facility] [place] [address]. , [address] W W [place] screening for tel:[phone] [address], St, [place], [place] [address] [place], [place], [place] [address]. [id number], y tel:[phone] [place] virusDermatitis 284838 tel:[phone] , [phone] unspecifiedEncn tr screen for infections w sexl mode of transmiss [facility] Encounter for [place] Ne. Referring [facility] [place] test, [address] [place] Provider: Lizbeth result negative [address], [place], [place], [address], [place], [address] [place], 620 [place]. [address], [place], St, [place], [address].Consu [id number], lting [place] Provider: tel:+ [place] [phone] [facility]. [facility] Human Viri Referring [facility] [place] immunodeficienc Mariaelena. 620 Provider: Southern y virus [HIV] [address], Mariaelena [place] counselingEncou [place], [place], Viri J, [address] [place], 620 [place] for [address], [place]. [place] screening for tel:+7 St, [place], St, [place], [place] [address] [place], [address]. [place], immunodeficienc tel:+ [phone], [place] 488305 [place] virusEncounter tel:+ for [phone] test, result negativeBody mass index (BMI) 21.0-21.9, adultEncounter for oth screening for malignant neoplasm of breastEncntr for manager clinical research exam (general) (routine) w/o abn findingsUnspeci fied lump in the right breast, upper inner quadrantCandidi asis of vulva and vagina [facility] Human Yamil Olivia. Referring [facility] [place] immunodeficienc [address] [place] Provider: Southern y virus [HIV] 8 St, [place], [place], [address], [place], [address] [place], 620 nter for [place]. W [place] screening for St, [place], St, [place], [address]. [place], [place]ienc [id number], y virusEncntr [place] screen for dis tel:+ of the [phone] bld/bld-form org/immun mechnsmEncounte r for oth general cnsl and advice on contraceptionEn cntr screen for infections w sexl mode of transmiss [facility] Human Yamil Olivia. Referring [facility] [place] immunodeficienc [address] [place] Provider: Southern y virus [HIV] 8 St, [place], [place], [address], [place], 620 [place], 620 nter for [place]. [place] [address] [place] screening for St, [place], St, [place], [place], [address]. [place], immunodef[place]ienc [id number], y [place] virusEncounter tel:[phone] for initial [phone] prescription of contraceptive pillsAcute vaginitisEncntr screen for infections w sexl mode of transmissEncntr screen for dis of the bld/bld-form org/immun mechnsm Planned [facility] Human Dec-1 Raphaelidis [facility] [place] immunodeficienc 3- Yesenia. [address] [place] y virus [HIV] [address], F[place] counselingEncou [place], [facility], 620 [place] [address]. [place] general cnsl tel:[phone] , [place], [place] [address] [place], contraceptionFr [id number], equency of [place] micturitionAcut tel:[phone] e [phone] vaginitisEncntr screen for infections w sexl mode of transmiss [facility] Encounter for Apr- [facility] [place] test, Aileen. [facility] result 7 [address] Finger negativeEncntr , [place], [facility], [facility] [place], [address], [place] infections w [place]. St, [place], sexl mode of tel:[phone] [place], transmissAcute [id number], vaginitisEncoun [place] ter for initial tel:[phone] prescription of [id number] contraceptive pillsEncntr screen for dis of the bld/bld-form org/[facility] Chlamydial Dec-0 [employer] [facility] [place] infection, P[facility] Provider: [facility] unspecified 6 [place]. 620 NURSE [place] [address], [facility]. [facility], 620 [place], [place], [place] [address]. , [place], tel:+[phone] [place], [id number], [place] tel:[phone] [facility] Chlamydial Dec-0 [facility] [place] infection, . [address] [place] unspecified [address], [place], [place], [facility], 620 [address]. [place] tel:+[phone] , [place], [address] [place], [id number], [place] tel:[phone] Planned [facility] Encntr screen Dec-0 [facility] [place] for infections 1-201 [place] w sexl mode of 6 [place]. 620 [address] transmissCandid [address], [place], 620 iasis of vulva [place], [place], [place] [address], [place], vaginaEncounter tel:[phone] [place], for oth general [address] [id number], cnsl and advice [place] on tel:[phone] contraception [phone] Family History Family Member Diagnosis Age At Onset Mother Venous thromboembolism 1st degree relative No hx of coronary heart disease (female <65, male <55) 1st degree relative No hx of venous thromboembolism 1st degree relative No hx of cancer of breast, colon, endometrium or ovary Immunizations Vaccine Date Status Comments No information Payers Payer name Insurance type Covered libertarian ID Authorization(s) Total Care Todays Options [id number] Social History Type Description Quantity Date Captured [...] Date No information Medical Equipment Description Device [place] Device Identifier Effective Dates (start - stop ) Status No information Mental Status Date Cognitive Assessment No information Health Concerns Observation Date No information Concern Status Date No information
--- NOTE | 2019-03-09 16:38 | ED ---
Headache - HPI Summary HPI Summary: The patient is a 23 y/o F presenting to [facility] accompanied by mother with a chief complaint of pain and tingling in the right side of the head onset four days ago. She reports that over the last four days, she has been experiencing intermittent episodes of sharp pain and pressure as well as a tingling sensation in the same area and into the neck. She states that she has also noticed that she has been off balance and has had memory loss and dizziness. She states that yesterday she woke up swelling in the right hand, and the day had been the worst with her neurological symptoms as well as she slept from 1600 last night until 0700 this morning after taking Advil and Nyquil. She endorses a decreased appetite, nausea, and sore throat. She denies any fevers, chills, rhinorrhea, palpitations, SOB, cough, vomiting abdominal pain, vagina discharge or bleeding, or dysuria. She has experienced CP, but this is chronic for her with diagnosed heart murmur. Symptoms currently rated 6/10 in severity. She notes that these symptoms are not like her usual migraines or headaches. LNMP was three days ago but was shorter than usual. She is not currently taking control. No other PMHx. Nonsmoker, occasional EtOH, no substance use. Medications reviewed. Allergies noted. - History Of Current Complaint Chief Complaint: EDHeadache Stated Complaint: HEADACHE PER PT Time Seen by Provider: 03/09/19 16:24 Hx Obtained From: Patient Hx Last Menstrual Period: 03/06/19 Onset/Duration: Still Present Initially Headache Was: Moderate Currently Pain Is: Current Pain Scale(0-10)= - 6 Timing: Intermittent, Lasting:, Hours Character: Sharp, Pressure Location of Headache: Temporal - right, Parietal - right Aggravating Factor: Nothing Allevating Factors: Nothing Associated Signs And Symptoms: Dizziness, Nausea, Neck Pain, Other (Noted In Comments) - decreased appetite, nausea, sore throat, memory loss, off-balance sensation, CP, swelling in right hand (resolved); Negative: fevers, chills, rhinorrhea, palpitations, SOB, cough, vomiting abdominal pain, vagina discharge or bleeding, dysuria - Allergies/Home Medications Allergies/Adverse Reactions: Allergies Allergy/AdvReac Type Severity Reaction Status Date / Time apple Allergy Swelling Verified 03/09/19 15:35 Of Face,Lips,& Throat PMH/Surg Hx/FS Hx/Imm Hx Endocrine/Hematology History: Denies: Hx Diabetes, Hx Thyroid Disease Cardiovascular History: Reports: Other Cardiovascular Problems/Disorders - HEART MURMUR Denies: Hx Hypertension, Hx Pacemaker/ICD Respiratory History: Denies: Hx Asthma, Hx Chronic Obstructive Pulmonary Disease (COPD) GI History: Denies: Hx Ulcer Psychiatric History: Denies: Hx Panic Disorder - Surgical History Surgical History: Yes Surgery Procedure, Year, and Place: CYST REMOVED FROM [facility] Infectious Disease History: Yes Infectious Disease History: Denies: Hx Hepatitis, Hx Human Immunodeficiency Virus (HIV), History Other Infectious Disease, Traveled Outside the [place] in Last 30 Days - Family History Known Family History: Positive: Blood Disorder - mother has anemia Negative: Hypertension - Social History Alcohol Use: Occasionally Hx Substance Use: No Substance Use Type: Reports: None Hx Tobacco Use: No Smoking Status (MU): Never Smoked Tobacco Type: Cigarettes Review of Systems Negative: Fever, Chills Positive: Sore Throat. Negative: Nasal Discharge Positive: Chest Pain. Negative: Palpitations Negative: Shortness Of Breath, Cough Positive: Nausea. Negative: Abdominal Pain, Vomiting, Other - decreased appetite Negative: dysuria, discharge, other - vaginal bleeding Positive: Other - neck pain Positive: Other - right hand swelling Neurological: Other - memory loss, off-balance, dizziness Positive: Headache - right head, sharp or tingling sensation All Other Systems Reviewed And Are Negative: Yes Physical Exam - Summary Physical Exam Summary: Constitutional: Well-developed, Well-nourished, Alert. (-) Distressed Skin: Warm, Dry HENT: Normocephalic; Atraumatic; Tenderness to the right scalp Eyes: Conjunctiva normal Neck: Musculoskeletal ROM normal neck. (-) JVD, (-) Stridor, (-) Tracheal deviation Cardio: Rhythm regular, rate normal, Heart sounds normal; Intact distal pulses; The pedal pulses are 2+ and symmetric. Radial pulses are 2+ and symmetric. (-) Murmur Pulmonary/Chest wall: Effort normal. (-) Respiratory distress, (-) Wheezes, (-) Rales Abd: Soft, (-) tenderness, (-) Distension, (-) Guarding, (-) Rebound Musculoskeletal: Tenderness to the right neck, (-) Edema Lymph: (-) Cervical adenopathy Neuro: Alert, Oriented x3 Psych: Mood and affect Normal Triage Information Reviewed: Yes Vital Signs On Initial Exam: Initial Vitals Temp Pulse Resp BP Pulse Ox 98.5 F 63 15 143/87 100 03/09/19 15:33 03/09/19 15:33 03/09/19 15:33 03/09/19 15:33 03/09/19 15:33 Vital Signs Reviewed: Yes Procedures - Sedation Patient Received Moderate/Deep Sedation with Procedure: No Diagnostics - Vital Signs Vital Signs Temp Pulse Resp BP Pulse Ox 03/09/19 15:33 98.5 F 63 15 143/87 100 - Laboratory Result Diagrams: 03/09/19 16:53 03/09/19 16:53 Lab Statement: Any lab studies that have been ordered have been reviewed, and results considered in the medical decision making process. - CT Brain CT CT Interpretation Completed By: Radiologist Summary of CT Findings: Impression: No acute intracranial abnormality. ED physician has reviewed this report. Re-Evaluation - Re-Evaluation First Eval Re-Evaluation Time: 20:40 Comment: Patient is still present, will order Fiorocet Second Eval Re-Evaluation Time: 21:18 Comment: Patient is feeling better. We discussed plan for discharge. Headache Course/Dx - Course Course Of Treatment: Patient is a 23 year-old female presenting with intermittent episodes of sharp pain and pressure as well as a tingling sensation in the same area and into the neck for the last four days with sensation of being off-balance, memory loss, and dizziness. Additionally notes increased sleeping, decreased appetite, nausea, and sore throat, but denies any other symptoms. Symptoms are not similar to previous headaches or migraines. Not currently on control; LNMP was a few days ago but was shorter than usual. Physical exam reveals tenderness to the right scalp and right neck. Blood work reveals hemoglobin of 11.9, MCV of 74, MCH of 25, potassium of 3.4, and negative beta HCG. Urinalysis is negative for infection. Brain CT is negative. Patient administered Zofran, Toradol, and Benadryl. Patient administered Fiorocet after pain has not resolved. Her pain has resolved so she is safe for discharge. Patient understands and agrees with plan. Diagnosis of atypical migraine. - Diagnoses Provider Diagnoses: Atypical migraine Discharge ED - Sign-Out/Discharge Documenting (check all that apply): Patient Departure - Patient will be discharged home. - Discharge Plan Condition: Stable Disposition: HOME Prescriptions: Butalb/Acetamin/Caff TAB* [Fioricet TAB*] 1 tab PO Q6H PRN #10 tab MDD 4 PRN Reason: Headache Patient Education Materials: Migraine Headache (ED) Print Language: BULGARIAN Forms: *Work Release Referrals: [facility] [Outside] No Primary Care Phys,NOPCP [Primary Care Provider] - - Billing Disposition and Condition Condition: STABLE Disposition: Home - Attestation Statements Document Initiated by Scribe: Yes Documenting Scribe: Jessy Rolle Provider For Whom Mely is Documenting (Include Credential): Dr. Brooke Tenorio MD Scribe Attestation: Jessy Lomeli scribed for Dr. Brooke Tenorio MD on 03/09/19 at 2308. Scribe Documentation Reviewed: Yes Provider Attestation: The documentation as recorded by the Jessy egan accurately reflects the service I personally performed and the decisions made by me, Dr. Brooke Tenorio MD Status of Scribmerry Document: Viewed
[2019-03-09 17:05] LABS: ABS Eosinophils 0.1 10^3/ul (0-0.6); ABS Lymphocytes 1.9 10^3/ul (1.0-4.8); ABS Monocytes 0.4 10^3/ul (0-0.8); ABS Neutrophils 4.5 10^3/ul (1.5-7.7); Eosinophil % 1.2 %; Hematocrit 35 % (35-47); Hemoglobin 11.9 g/dL (12.0-16.0); Lymphocyte % 27.1 %; Mean Corpuscular HGB Conc 35 g/dL (31-36); Mean Corpuscular Hemoglobin 25 pg (27-31); Mean Corpuscular Volume 74 fL (80-97); Platelet Count 253 10^3/uL (150-450); Red Blood Count 4.69 10^6 /uL (3.70-4.87); Red Cell Distribution Width 15 % (10-15); White Blood Count 6.9 10^3/uL (3.5-10.8)
[2019-03-09 17:18] LABS: ALT 12 U/L (7-52); AST 16 U/L (13-39); Albumin 4.1 g/dL (3.2-5.2); Albumin/Globulin Ratio 1.6 (1-3); Alkaline Phosphatase 36 U/L (34-104); Anion Gap 3 mmol/L (2-11); BUN/Creatinine Ratio 17.2 (8-20); Blood Urea Nitrogen 10 mg/dL (6-24); CO2 Carbon Dioxide 28 mmol/L (22-32); Calcium 9.1 mg/dL (8.6-10.3); Chloride 108 mmol/L (101-111); EGFR African American 155.9 (>60); EGFR Non-African American 128.8 (>60); Globulin 2.6 g/dL (2-4); Glucose 92 mg/dL (70-100); Potassium 3.4 mmol/L (3.5-5.0); Sodium 139 mmol/L (135-145); Total Protein 6.7 g/dL (6.4-8.9)
[2019-03-09 17:24] LABS: HCG Pregnancy < 0.60 mIU/mL
[2019-03-09 17:54] LABS: Urine Appearance Clear; Urine Bilirubin Negative (Negative); Urine Blood Negative (Negative); Urine Color Yellow; Urine Glucose Negative (Negative); Urine Ketones Negative (Negative); Urine Nitrite Negative (Negative); Urine Protein Negative (Negative); Urine Specific Gravity 1.019 (1.010-1.030); Urine Urobilinogen Negative (Negative)
[2019-03-09] MEDS ORDERED: diPHENhydraMINE IV* 50 MG/ML 1 ml VIAL (BENADRYL) IV ONE (19:22)
[2019-03-09] MEDS ORDERED: Ondansetron INJ* 2 MG/ML VIAL IV ONE (19:22)
[2019-03-09] MEDS ORDERED: Ketorolac INJ* 30 MG/ML 1 ML VIAL IV ONE (19:22)
[2019-03-09] MEDS ORDERED: Butalb/Acetamin/Caff TAB* 1 TAB PO ONE (20:41)
[2019-03-09 21:53] VITALS: BP 120/73
== END 2019-03-09 21:52 | disposition home or self-care (01) ==
LOC: ED 15:31
DX: G43.909 Migraine, unspecified, not intractable, without status migrainosus (principal)
CPT/HCPCS: 36415; 70450; 80053; 81003; 84702; 85025; 96374; 96375; 99283; A9270-GY; J1200; J1885; J2405

== ENCOUNTER 2019-04-03 18:38 | Emergency (ER) | payer SELFPAY ==
[2019-04-03] MEDS ORDERED: Ketorolac INJ* 30 MG/ML 1 ML VIAL IM ONE (20:04)
[2019-04-03] MEDS ORDERED: Cyclobenzaprine TAB* 10 MG PO ONE (20:04)
--- NOTE | 2019-04-03 20:49 | UC ---
Neck Pain HPI - History of Current Complaint Chief Complaint: UCGeneralIllness Stated Complaint: NECK PAIN Time Seen by Provider: 04/03/19 19:33 Hx Obtained From: Patient Hx Last Menstrual Period: Pain Intensity: 7 - Allergies/Home Medications Allergies/Adverse Reactions: Allergies Allergy/AdvReac Type Severity Reaction Status Date / Time apple Allergy Swelling Verified 04/03/19 19:01 Of Face,Lips,& Throat Home Medications: Home Medications Ibuprofen TAB* [Motrin TAB* 600 MG] 600 mg PO Q6H PRN 04/03/19 [History Confirmed 04/03/19] PMH/Surg Hx/FS Hx/Imm Hx Neurological History: Migraine - Surgical History Surgical History: Yes Surgery Procedure, Year, and Place: CYST REMOVED FROM [facility] - Family History Known Family History: Positive: Blood Disorder - mother has anemia Negative: Hypertension - Social History Occupation: Employed Full-time Lives: With Family Alcohol Use: Rare Substance Use Type: None Smoking Status (MU): Never Smoked Tobacco Type: Cigarettes - Immunization History Most Recent Influenza Vaccination: none Most Recent Pneumonia Vaccination: none Review of Systems All Other Systems Reviewed And Are Negative: Yes Constitutional: Negative: Fever, Chills Skin: Negative: Rash ENT: Positive: Negative Respiratory: Positive: Negative Cardiovascular: Positive: Negative Gastrointestinal: Positive: Negative Genitourinary: Positive: Negative Motor: Negative: Weakness Neurovascular: Negative: Decreased Sensation Musculoskeletal: Positive: Other: - See HPI Neurological: Negative: Headache, Weakness, Paresthesia, Numbness Is Patient Immunocompromised?: No Physical Exam - Summary Physical Exam Summary: GENERAL APPEARANCE: Well developed, well nourished, alert and cooperative, and appears to be in no acute distress. NECK: CARDIAC: Normal S1 and S2. No S3, S4 or murmurs. Rhythm is regular. There is no peripheral edema, cyanosis or pallor. Extremities are warm and well perfused. Capillary refill is less than 2 seconds. Peripheral pulses intact. LUNGS: Clear to auscultation without rales, rhonchi, wheezing or diminished breath sounds. ABDOMEN: Positive bowel sounds. Soft, nondistended, nontender. No guarding or rebound. No masses or hepatosplenomegally. MUSKULOSKELETAL: ROM intact to all extremities. No joint erythema or tenderness. Normal muscular development. Normal gait. EXTREMITIES: No significant deformity or joint abnormality. No edema. NEUROLOGICAL: Strength and sensation symmetric and intact throughout. SKIN: Skin normal color, texture and turgor with no lesions or eruptions. Triage Information Reviewed: Yes Vital Signs: Initial Vital Signs Temp 99.1 F 04/03/19 18:57 Pulse 63 04/03/19 18:57 Resp 16 04/03/19 18:57 BP 121/76 04/03/19 18:57 Pulse Ox 100 04/03/19 18:57 Vital Signs Reviewed: Yes Diagnostics - Radiology No standard instances Radiology Interpretation Completed By: ED Physician Summary of Radiographic Findings: No acute pathology Neck Pain Course/Dx - Differential Dx/Diagnosis Differential Dx/HQI/PQRI: Cervical Fracture, Meningitis, Strain, Torticollis Provider Diagnosis: Strain of cervical portion of right trapezius muscle Discharge ED - Sign-Out/Discharge Documenting (check all that apply): Patient Departure All imaging exams completed and their final reports reviewed: No - Discharge Plan Condition: Stable Disposition: HOME Prescriptions: Cyclobenzaprine TAB* [Flexeril 10 MG TAB*] 10 mg PO TID PRN #21 tab PRN Reason: Spasms Naproxen [Naproxen 500 mg tab] 500 mg PO Q12HR PRN #30 tablet PRN Reason: Pain - Moderate Patient Education Materials: Muscle Strain (ED) Referrals: No Primary Care Phys,NOPCP [Primary Care Provider] - [facility] [Outside] Additional Instructions: The x-ray performed in the clinic today was normal. It will be reviewed by the radiologist in the morning and we will contact you if they see anything that we' ll change her plan of care. You were given an injection of an anti-inflammatory pain medication called ketorolac in the clinic tonight at 8:25 PM for the pain. You should not take any other anti-inflammatory pain medication such as ibuprofen (Advil, Motrin), naproxen (Aleve), or aspirin for at least 8 hours after receiving this medication. I have given you a prescription for naproxen 500 mg 1 tablet every 12 hours as needed for pain. Take cyclobenzaprine 10 mg 1 tablet every 8 hours as needed for severe pain or spasm. We gave you a dose of this in the clinic tonight at 8:25 PM. Apply a heating pad to the affected area for 15-20 minutes at least 4 times a day to help with the pain and to relax the muscles. Return here or follow up with primary care in 3-5 days days if symptoms do not improve. Seek immediate medical attention if you develop a fever greater than 100.5 F, have severe headache, visual disturbances, have severe neck pain not managed with pain medication, develop numbness, tingling, or weakness in the arm, persistent vomiting, or have any worsening of symptoms. - Billing Disposition and Condition Condition: STABLE Disposition: Home
[2019-04-03 21:04] VITALS: BP 119/79
--- NOTE | 2019-04-04 07:45 | UC ---
- Progress Note Progress Note: no change in initial management - EKG/XRAY/CT XRAY: c-spine - mild degenerative disease. If symptoms persist recommend repeat imaging Course/Dx - Diagnoses Provider Diagnoses: Strain of cervical portion of right trapezius muscle Discharge ED - Sign-Out/Discharge Documenting (check all that apply): Post-Discharge Follow Up All imaging exams completed and their final reports reviewed: Yes - Discharge Plan Condition: Stable Disposition: HOME Prescriptions: Cyclobenzaprine TAB* [Flexeril 10 MG TAB*] 10 mg PO TID PRN #21 tab PRN Reason: Spasms Naproxen [Naproxen 500 mg tab] 500 mg PO Q12HR PRN #30 tablet PRN Reason: Pain - Moderate Patient Education Materials: Muscle Strain (ED) Forms: *Work Release Referrals: [facility] [place] [facility] [place]Outside] No Primary Care Phys,NOPCP [Primary Care Provider] - Additional Instructions: The x-ray performed in the clinic today was normal. It will be reviewed by the radiologist in the morning and we will contact you if they see anything that we' ll change her plan of care. You were given an injection of an anti-inflammatory pain medication called ketorolac in the clinic tonight at 8:25 PM for the pain. You should not take any other anti-inflammatory pain medication such as ibuprofen (Advil, Motrin), naproxen (Aleve), or aspirin for at least 8 hours after receiving this medication. I have given you a prescription for naproxen 500 mg 1 tablet every 12 hours as needed for pain. Take cyclobenzaprine 10 mg 1 tablet every 8 hours as needed for severe pain or spasm. We gave you a dose of this in the clinic tonight at 8:25 PM. Apply a heating pad to the affected area for 15-20 minutes at least 4 times a day to help with the pain and to relax the muscles. Return here or follow up with primary care in 3-5 days days if symptoms do not improve. Seek immediate medical attention if you develop a fever greater than 100.5 F, have severe headache, visual disturbances, have severe neck pain not managed with pain medication, develop numbness, tingling, or weakness in the arm, persistent vomiting, or have any worsening of symptoms. - Billing Disposition and Condition Condition: STABLE Disposition: Home
== END 2019-04-03 21:05 | disposition home or self-care (01) ==
LOC: UCEAST 18:38
DX: S46.811A Strain of other muscles, fascia and tendons at shoulder and upper arm level, right arm, initial encounter (principal); X58.XXXA Exposure to other specified factors, initial encounter; Y92.9 Unspecified place or not applicable; Z91.018 Allergy to other foods
CPT/HCPCS: 72050; 96372; 99212; A9270-GY; G0463; J1885

== ENCOUNTER 2019-05-18 12:43 | Emergency (ER) | payer SELFPAY ==
[2019-05-18 13:41] VITALS: BP 111/73
--- NOTE | 2019-05-18 14:53 | UC ---
Back Pain HPI - HPI Summary HPI Summary: PATIENT WORKS AT [employer] [place]. WAS HELPING TO TRANSFER A PATIENT THIS MORNING WHEN SHE PULLED HER LOW BACK. STATES SHE HAS CHRONIC DISCOMFORT IN HER BACK AND STRUGGLES WITH FLARES FROM TIME TO TIME. SHE HAS OCCASIONAL SHOOTING PAINS IN HER LEGS BUT DENIES ANY SADDLE ANESTHESIA. NO LOSS OF BOWEL OR BLADDER CONTROL. HAS NOT TAKEN ANY ANALGESICS. - History of Current Complaint Chief Complaint: UCBackPain Stated Complaint: BACK INJURY Time Seen by Provider: 05/18/19 14:14 Hx Obtained From: Patient Hx Last Menstrual Period: Onset/Duration: Sudden Onset, Lasting Hours, Still Present Timing: Constant Severity Initially: Moderate Severity Currently: Moderate Pain Intensity: 7 Pain Scale Used: 0-10 Numeric Back Pain: Is Discrete @ - LOW BACK Character: Sharp Aggravating Factor(s): Movement Alleviating Factor(s): Rest Associated Signs And Symptoms: Negative: Weakness, Numbness, Bladder Incontinence, Bowel Incontinence - Allergies/Home Medications Allergies/Adverse Reactions: Allergies Allergy/AdvReac Type Severity Reaction Status Date / Time apple Allergy Swelling Verified 05/18/19 13:35 Of Face,Lips,& Throat Home Medications: Home Medications Cyclobenzaprine TAB* [Flexeril TAB*] 10 mg PO BID PRN #30 tab 05/18/19 [Rx] Naproxen [Naproxen 500 mg tab] 500 mg PO BID PRN #30 tablet 05/18/19 [Rx] PMH/Surg Hx/FS Hx/Imm Hx Neurological History: Migraine - Surgical History Surgical History: Yes Surgery Procedure, Year, and Place: CYST REMOVED FROM [facility] - Family History Known Family History: Positive: Blood Disorder - mother has anemia Negative: Hypertension - Social History Alcohol Use: Rare Substance Use Type: None Smoking Status (MU): Never Smoked Tobacco Type: Cigarettes - Immunization History Most Recent Influenza Vaccination: none Most Recent Pneumonia Vaccination: none Review of Systems All Other Systems Reviewed And Are Negative: Yes Constitutional: Positive: Negative Skin: Positive: Negative Respiratory: Positive: Negative Cardiovascular: Positive: Negative Gastrointestinal: Positive: Negative Musculoskeletal: Positive: Arthralgia, Decreased ROM, Myalgia Physical Exam Triage Information Reviewed: Yes Appearance: Well-Appearing, No Pain Distress, Well-Nourished Vital Signs: Initial Vital Signs Temp 98.7 F 05/18/19 13:36 Pulse 73 05/18/19 13:36 Resp 18 03/06/20 13:36 BP 111/73 05/18/19 13:36 Pulse Ox 100 05/18/19 13:36 Vital Signs Reviewed: Yes Eyes: Positive: Conjunctiva Clear ENT: Positive: Hearing grossly normal Neck: Positive: Supple Respiratory: Positive: No respiratory distress, No accessory muscle use Cardiovascular: Positive: Pulses Normal Abdomen Description: Positive: Soft Musculoskeletal: Positive: No Edema, ROM Limited @ - BACK, Other: - TTP DIFFUSELY OVER BONY PROMINENCES AND SOFT TISSUES OF LOW BACK Neurological: Positive: Alert, Other: - NEG STRAIGHT LEG RAISE Psychological: Positive: Age Appropriate Behavior Skin: Negative: Rashes Diagnostics - Radiology L-SPINE XRAYS Radiology Interpretation Completed By: Radiologist Summary of Radiographic Findings: SCOLIOSIS Back Pain Course/Dx - Course Course Of Treatment: PATIENT ARRIVES WITH ACUTE LOW BACK PAIN AFTER ATTEMPTING TO TRANSFER A PATIENT AT [facility] THIS MORNING. STATES SHE HAS STRUGGLED WITH CHRONIC BACK PAIN FOR YEARS. X-RAY OF HER LUMBAR SPINE OBTAINED TODAY SHOWS SCOLIOSIS WHICH IS THE LIKELY REASON SHE HAS CHRONIC BACK PAIN. PHYSICAL THERAPY REFERRAL PROVIDED. PATIENT ENCOURAGED TO FOLLOW-UP WITH [facility] TO FURTHER EVALUATE AND TO DISCUSS TREATMENT OPTIONS FOR HER CHRONIC BACK PAIN. NAPROXEN NEEDED FOR DISCOMFORT. FLEXERIL BEFORE BED. REST, STRETCH, RANGE OF MOTION ACTIVITIES. TO ER IF SX WORSEN. - Differential Dx/Diagnosis Provider Diagnosis: Acute exacerbation of chronic low back pain Discharge ED - Sign-Out/Discharge Documenting (check all that apply): Patient Departure All imaging exams completed and their final reports reviewed: Yes - Discharge Plan Condition: Stable Disposition: HOME Prescriptions: Cyclobenzaprine TAB* [Flexeril TAB*] 10 mg PO BID PRN #30 tab PRN Reason: Pain Naproxen [Naproxen 500 mg tab] 500 mg PO BID PRN #30 tablet PRN Reason: Pain Patient Education Materials: Low Back Strain (ED), Scoliosis in Children (DC) Referrals: [facility] [Outside] - 1 Week Additional Instructions: LUMBAR SPINE X-RAY TODAY SHOWS SCOLIOSIS BUT NO ACUTE PROCESS. REST. NAPROXEN AND FLEXERIL PRESCRIBED TO HELP WITH DISCOMFORT. PHYSICAL THERAPY REFERRAL PROVIDED YOU WOULD LIKELY BENEFIT FROM STRENGTHENING OF YOUR BACK MUSCLES. FOLLOW-UP WITH [facility] FOR FURTHER EVALUATION AND TO DISCUSS TREATMENT OPTIONS FOR YOUR CHRONIC BACK PAIN/SCOLIOSIS. BE SURE TO GO THROUGH SLOW RANGE OF MOTION AND STRETCHING EXERCISES DAILY YOU ARE ABLE TO PREVENT STIFFENING UP AND MAKING THE DISCOMFORT WORSE. GO TO THE ED WITHOUT FAIL IF YOU DEVELOP WORSENING NUMBNESS/TINGLING IN YOUR LEGS, NUMBNESS IN THE GENITAL REGION, LOSS OF BOWEL/BLADDER CONTROL, INTOLERABLE PAIN OR ANY OTHER CONCERNING SYMPTOMS. - Billing Disposition and Condition Condition: STABLE Disposition: Home
== END 2019-05-18 15:20 | disposition home or self-care (01) ==
LOC: UCEAST 12:43
DX: M54.5 Low back pain (principal); G89.29 Other chronic pain; M41.86 Other forms of scoliosis, lumbar region; G43.909 Migraine, unspecified, not intractable, without status migrainosus; Z91.018 Allergy to other foods; Z79.899 Other long term (current) drug therapy
CPT/HCPCS: 72110; 99212; G0463